=== PATIENT | male | born 1975 | race Caucasian/White ===

== ENCOUNTER 2020-05-24 12:47 | Emergency (ER) | payer BC ==
[~2020-05-24] VITALS: Ht 172.7 cm; Wt 90.9 kg
[2020-05-24 12:50] VITALS: BP 154/98
== END 2020-05-24 16:43 | disposition home or self-care (01) ==
LOC: ER 12:48
DX: R22.1 Localized swelling, mass and lump, neck (principal); R05 Cough
CPT/HCPCS: 99281; 99282